=== PATIENT | male | born 1945 | race Caucasian/White ===

== ENCOUNTER → 2016-10-01 | Outpatient (CLI) | payer OTHER | LOC: FIMAGING 15:36 | PROVIDERS: ATTEND Family Medicine | DX: K42.9 Umbilical hernia without obstruction or gangrene (principal) ==

== ENCOUNTER 2017-02-18 06:42 | Day surgery (SDC) | payer OTHER ==
--- NOTE | 2017-02-14 15:52 | GHP ---
[f rep st] HISTORY AND PHYSICAL DATE OF SURGERY: 02/18/2017 CHIEF COMPLAINT: Umbilical hernia. HISTORY OF PRESENT ILLNESS: The patient is a 71-year-old male, who was referred here for an umbilical hernia, for which he has been seen by his PCP, Dr. Slater, on 10/01/2016. An ultrasound had been ordered that same day that showed a freely reducible umbilical hernia. He states that this does not cause him any pain. He denies any heart or lung problems, asthma, or diabetes. He has no complaints of fever, chills, nausea, vomiting, diarrhea, or constipation today. PAST MEDICAL HISTORY: Atherosclerosis, BPH with urinary obstruction, cardiomyopathy, chest pain, dyspnea, heart murmur, hypercholesterolemia, hyperlipidemia, non-Hodgkin's lymphoma, oral herpes, osteoarthritis of multiple sites, pneumonia, shortness of breath, valvular heart disease. PAST SURGICAL HISTORY: Lymphoma, biopsy, port placement, lipoma excision. MEDICATIONS: Acyclovir, aspirin 81 mg a day, EpiPen, lorazepam, simvastatin, vitamin B12, vitamin D3, vitamin C, Zocor. ALLERGIES: No known drug allergies. REVIEW OF SYSTEMS: 10-point review of systems negative except for noted above in the HPI. PHYSICAL EXAM: GENERAL: Well-groomed, pleasant, nontoxic-appearing male. SKIN : Warm and dry. HEENT: Normocephalic. CARDIAC: Regular rate and rhythm. RESPIRATORY: Clear to auscultation bilaterally. No increased work of breathing. ABDOMEN: Positive for a palpable, reducible, soft umbilical defect. Negative for palpable inguinal defects. Negative for distention, tenderness, rigidity, or guarding. EXTREMITIES: Adequate peripheral perfusion. MUSCULOSKELETAL: Ambulates well independently. Normal gait. PSYCH : Mood and affect were normal. NEURO: Alert, oriented. ASSESSMENT: Umbilical hernia. PLAN: The patient was advised that he has a small umbilical hernia, and this may be repaired at his convenience. I did warn him of the risks of not having this hernia repaired, including bowel incarceration or strangulation. We discussed the usual course of an open umbilical hernia repair with mesh, and the probable course of convalescence, necessitated risks including bleeding, infection, and recurrence. I explained the indications for mesh and its benefit. We have discussed all activity and lifting restrictions that would be in placed for surgery. He understood all the above, and wishes to proceed with the umbilical hernia repair. /[id number]/MODL MTDD
[~2017-02-18 06:42] MED LIST: ceFAZolin 2 GM/DEXTROSE 100 ML IV ONE
[2017-02-18] MEDS ORDERED: ceFAZolin 2 GM/DEXTROSE 100 ML IV ONE (07:03)
[2017-02-18] MEDS ORDERED: LR 1,000 ML IV ONE (07:12)
[2017-02-18] MEDS ORDERED: LIDOCAINE 1% 2 ML INJ ID PRN (07:12)
[2017-02-18] MEDS ORDERED: BUPIVACAINE 0.5% 30 ML SDV ONE (07:22)
[2017-02-18] MEDS ORDERED: fentaNYL 100 MCG/2 ML INJ ONE (07:43)
[2017-02-18] MEDS ORDERED: MIDAZOLAM 2 MG/2 ML VIAL ONE ×2 (07:43→07:53)
[2017-02-18] MEDS ORDERED: PROPOFOL/EMULSION 500 MG/50 ML BOTTLE IV ONE (07:43)
--- NOTE | 2017-02-18 07:47 | PDHPUP ---
History & Physical Update H&P update statement: This history and physical update is based on an assessment of the patient which was completed after admission or registration (within 24 hours), but prior to the surgery/procedure. H&P update: H&P reviewed & patient examined, no change in patient's condition since H&P completed
[2017-02-18 07:52] VITALS: PULSE 64
[2017-02-18] MEDS ORDERED: LIDOCAINE 1% 300 MG/30 ML SDV ONE (08:03)
[2017-02-18] MEDS ORDERED: SODIUM BICARBONATE 10 MEQ/10 ML SYR IVP ONE (08:04)
[2017-02-18] MEDS ORDERED: fentaNYL 100 MCG/2 ML INJ IVP PRN (08:08)
[2017-02-18] MEDS ORDERED: METOCLOPRAMIDE 10 MG/2 ML VIAL IVP PRN (08:08)
[2017-02-18] MEDS ORDERED: ALBUTEROL 3 ML DEYVIAL IH PRN (08:08)
[2017-02-18] MEDS ORDERED: OXYCODONE/APAP 5/325 TAB PO PRN (08:08)
[2017-02-18] MEDS ORDERED: LR 500 ML IV PRN (08:08)
[2017-02-18] MEDS ORDERED: NALOXONE HCL 0.4 MG/ML INJ IVP PRN (08:08)
[2017-02-18] MEDS ORDERED: ONDANSETRON 4 MG/2 ML VIAL IVP PRN (08:08)
[2017-02-18] MEDS ORDERED: MEPERIDINE 25 MG/ML SYR IVP PRN (08:08)
[2017-02-18] MEDS ORDERED: ACETAMINOPHEN 500 MG TAB PO PRN (08:08)
[2017-02-18] MEDS ORDERED: HYDROCODONE/APAP 5/325 TAB PO PRN (08:08)
[2017-02-18] MEDS ORDERED: DEXAMETHASONE 4 MG/ML VIAL IVP PRN (08:08)
--- NOTE | 2017-02-18 08:12 | PDANEPAE ---
ANE Past Medical History - Cardiovascular History Hx Hypertension: No Hx Arrhythmias: No Hx Chest Pain: No Hx Coronary Artery / Peripheral Vascular Disease: No Hx CHF / Valvular Disease: No Hx Palpitations: No Cardiovascular History Comment: TAKES SIMVASTATIN EVERY OTHER DAY - Pulmonary History Hx COPD: No Hx Asthma/Reactive Airway Disease: No Hx Recent Upper Respiratory Infection: No Hx Oxygen in Use at Home: No Hx Sleep Apnea: No Sleep Apnea Screening Result - Last Documented: Negative - Neurologic History Hx Cerebrovascular Accident: No Hx Seizures: No Hx Dementia: No - Endocrine History Hx Diabetes: No - Renal History Hx Renal Disorders: Yes Renal History Comment: BPH. FREQUENCY - Liver History Hx Hepatic Disorders: No - Neurological & Psychiatric Hx Hx Neurological and Psychiatric Disorders: No - Cancer History Hx Cancer: Yes Cancer History Comment: CHEMO 2003 AND 2004. NON-HODGKINS LYMPHOMA - Congenital Disorder History Hx Congenital Disorders: No - GI History Hx Gastrointestinal Disorders: Yes Gastrointestinal History Comment: CURRENT UMBILICAL HERNIA. HX OF INGUINAL HERNIA'S - Other Health History Other Health History: WEARS READING GLASSES - Chronic Pain History Chronic Pain: No - Surgical History Prior Surgeries: INGUINAL HERNIA'S X2. PORT PLACEMENT WITH MCCALLUM. DENTAL SURGERIES ANE Review of Systems Review of Systems: - Exercise capacity METS (RN): 5 METS ANE Patient History - Allergies Allergies/Adverse Reactions: No Known Allergies Allergy (Verified 02/17/17 17:39) - Home Medications Home Medications: Aspirin [Aspirin 81mg (*)] 01/07/15 [Last Taken 02/16/17] Herbals/Supplements -Info Only 04/08/16 [Last Taken 02/16/17] SIMVASTATIN 02/17/17 [Last Taken 02/16/17] - NPO status NPO Since - Liquids (Date): 02/18/17 NPO Since - Liquids (Time): 04:15 NPO Since - Solids (Date): 02/17/17 NPO Since - Solids (Time): 22:15 - Smoking Hx Smoking Status: Never smoked - Family Anes Hx Family Hx Anesthesia Complications: NONE ANE Labs/Vital Signs - Vital Signs Blood Pressure: 141/89 Heart Rate: 64 Respiratory Rate: 16 O2 Sat (%): 93 Height: 172.72 cm Weight: 78.925 kg ANE Physical Exam - Airway Neck exam: FROM Mallampati Score: Class 1 Mouth exam: normal dental/mouth exam - Pulmonary Pulmonary: no respiratory distress, no rales or rhonchi, clear to auscultation - Cardiovascular Cardiovascular: regular rate and rhythym - ASA Status ASA Status: II ANE Anesthesia Plan Anesthesia Plan: GA with mask
[2017-02-18] MEDS ORDERED: ONDANSETRON 4 MG/2 ML VIAL ONE (08:13)
[2017-02-18] MEDS ORDERED: KETOROLAC 30 MG/1 ML SDV ONE (08:13)
[2017-02-18] MEDS ORDERED: LIDOCAINE 2% 5 ML SDV ONE (08:13)
--- NOTE | 2017-02-18 08:39 | POSTOPPROG ---
Post Op Note Date of Operation: 02/18/17 Surgeon: Roberto Grullon Reconcilement Clerk: Jayna Patel Anesthesiologist: Joann Jackson Anesthesia: GET(General Endotracheal), IV Sedation Pre-op Diagnosis: umbilical hernia Post-op Diagnosis: same Procedure: open umbilical hernia repair (no mesh) Findings: 1 cm defect Inf/Abcess present in the surg proc area at time of surgery?: No EBL: Minimal Complications: none Specimen(s): none
--- NOTE | 2017-02-18 09:33 | POSTANESTH ---
Post Anesthetic Evaluation Cardiovascular Status: Normal, Stable Respiratory Status: Normal, Stable Level of Consciousness/Mental Status: Mildly Sleepy, Arousable Pain Control: Adequate, Prn Tx Ordered Nausea/Vomiting Control: Adequate, Prn Tx Ordered Complications Possibly Related to Anesthesia: None Noted
[2017-02-18 09:53] VITALS: O2SAT 91
[2017-02-18 09:58] VITALS: TEMP 97.5
[2017-02-18 10:44] VITALS: BP 127/81; RESP 17
--- NOTE | 2017-02-26 05:28 | GOP ---
[f rep st] OPERATIVE REPORT DATE OF OPERATION: 02/18/2017 SURGEON: Roberto Grullon MD JEWEL STRINGER: CARMELINA García. ANESTHESIOLOGIST: Sada Jackson MD. PREOPERATIVE DIAGNOSIS: Symptomatic umbilical hernia. POSTOPERATIVE DIAGNOSIS: Symptomatic umbilical hernia. PROCEDURE PERFORMED: FINDINGS: The patient was found to have a 2 cm umbilical hernia defect. DESCRIPTION OF PROCEDURE: The patient was taken to the operating room. Received satisfactory genera l endotracheal anesthesia by Dr. Jackson. He was placed in supine position, prepped and draped in the usual sterile fashion. An infraumbilical incision was made. It was dissected down through the subc utaneous tissue. The hernia sac was dissected free from surrounding subcu tissue and off the back of the umbilical skin. The hernia sac was then opened at the fascial level. Its contents were reduced . A subfascial space was created. A piece of Bard polyethylene mesh was then placed subfascially an d anchored around the periphery of the incision with interrupted 0 Ethibond mattress sutures the defe ct itself was then closed directly with interrupted 0 Ethibond [id number] sutures. Wound was in filtrated with 0.25% Marcaine. Subcu was closed with 3-0 Vicryl, and the skin was closed with a 4-0 Monocryl subcuticular stitch. He tolerated procedure well. He was taken care room in good condition . There were no complications. Blood loss was negligible. /[id number]/MODL
== END 2017-02-18 10:39 | disposition home or self-care (01) ==
LOC: FSGY 06:42
PROVIDERS: ATTEND Surgery
PROC: 0WQF0ZZ Repair Abdominal Wall, Open Approach (ICD-10-PCS; principal; 2017-02-18 08:00)
DX: K42.9 Umbilical hernia without obstruction or gangrene (principal); E78.5 Hyperlipidemia, unspecified; E78.00 Pure hypercholesterolemia, unspecified; I42.9 Cardiomyopathy, unspecified
CPT/HCPCS: J0690; J1885; J2250; J2405; J2704; J3010

== ENCOUNTER → 2017-05-14 | Outpatient (CLI) | payer OTHER | LOC: BMCIMAGING 10:03 → EDSTATUS 10:04 | PROVIDERS: ATTEND Internal Medicine | DX: M51.36 Other intervertebral disc degeneration, lumbar region (principal) ==